=== PATIENT | female | born 1990 | race Caucasian/White ===

== ENCOUNTER 2018-07-16 16:57 | Emergency (ER) | payer OTHER ==
[~2018-07-16] VITALS: Ht 162.6 cm; Wt 76.2 kg
[~2018-07-16 16:57] MED LIST: IRON15TA3 PO
[2018-07-16 17:04] VITALS: BP 116/79
[2018-07-16] MEDS ORDERED: ONDANSETRON ODT 4 MG ONE (17:28)
[2018-07-16] MEDS ORDERED: FAMOTIDINE 20 MG TABLET ONE (17:29)
[2018-07-16] MEDS ORDERED: ONDANSETRON ODT 4 MG PO ONE (17:30)
[2018-07-16] MEDS ORDERED: FAMOTIDINE 20 MG TABLET PO ONE (17:30)
--- NOTE | 2018-07-16 17:30 | NUR ---
PT AMBULATORY TO ROOM 5 W/ C/O ALLERGIC REACTION TO CATS THAT INCLUDED BILAT EYE SWELLING. PT NOW RESTING ON [facility]. NADN. PT STATES SHE WAS GIVEN [employer]NA[employer] AND [employer] COUNSEL[employer].
== END 2018-07-16 18:37 | disposition home or self-care (01) ==
LOC: ED 18:05
DX: T78.40XA Allergy, unspecified, initial encounter (principal); R21 Rash and other nonspecific skin eruption; J98.01 Acute bronchospasm
CPT/HCPCS: 93005; 99284; J7512; Q0162

== ENCOUNTER 2018-09-02 12:59 | Emergency (ER) | payer SELFPAY ==
[~2018-09-02] VITALS: Ht 162.6 cm; Wt 77.1 kg
[2018-09-02] MEDS ORDERED: SODIUM CHLORIDE FLUSH 10ML SYR IVF ONE (14:30)
[2018-09-02 14:54] LABS: ALANINE AMINOTRANSFERASE 20 U/L (12-78); ALBUMIN 3.8 g/dL (3.4-5.0); ANION GAP 8 mmol/L (5-15); CALCIUM 8.8 mg/dL (8.5-10.1); CHLORIDE 108 mmol/L (98-107); CREATININE 0.68 mg/dL (0.55-1.02)
[2018-09-02 14:57] LABS: ALKALINE PHOSPHATASE 52 U/L (45-117); BILIRUBIN,TOTAL 0.8 mg/dL (0.2-1.0); TOTAL PROTEIN 7.7 g/dL (6.4-8.2)
--- NOTE | 2018-09-02 14:58 | NUR ---
SWING MANAGER: PT AMBULATORY TO ED ROOM 15 FROM JUAN DAVID IN NAD
--- NOTE | 2018-09-02 15:01 | NUR ---
PT AMBULATED TO BATHROOM. UA COLLECTED.
--- NOTE | 2018-09-02 15:14 | NUR ---
PT HAS CO OF BODY ACHE, SORE THROAT, VOMITING, DIARRHEA THAT STARTED YESTERDAY.
[2018-09-02 15:16] LABS: HCG UR SG 1.021 (1.003-1.030)
[2018-09-02] MEDS ORDERED: ONDANSETRON ODT 4 MG ONE (15:17)
[2018-09-02 15:20] LABS: MICROSCOPIC INDICATED
[2018-09-02 15:24] LABS: MEAN CORPUSCULAR HGB CONC 33.8 g/dL (32.4-35.8); MEAN CORPUSCULAR VOLUME 97.6 fL (80-100); MEAN PLATELET VOLUME 10.8 fL (7.4-10.4); PLATELET COUNT 166 x10^3/uL (130-400); RED BLOOD COUNT 4.05 x10^6/uL (3.82-5.3); RED CELL DISTRIBUTION WIDTH 12.8 % (9.6-15.2)
[2018-09-02 15:25] LABS: BASOPHILS # (AUTO) 0.01 x10^3/uL (0-0.1); BASOPHILS % (AUTO) 0 % (0-1); EOSINOPHILS % (AUTO) 1 % (1-7); LYMPHOCYTES % (AUTO) 14 % (22-44); MD MORPH REVIEW ONLY; MONOCYTES # (AUTO) 0.62 x10^3/uL (0.2-0.8); MONOCYTES % (AUTO) 6 % (2-9); NEUTROPHILS # (AUTO) 8.96 x10^3/uL (1.8-6.8); NEUTROPHILS % (AUTO) 79 % (42-75)
[2018-09-02 15:27] LABS: <RBC MORPHOLOGY> NORMAL
[2018-09-02 15:28] LABS: <PLATELET ESTIMATE> ADEQUATE; GIANT PLATELETS 1+
[2018-09-02] MEDS ORDERED: ONDANSETRON ODT 4 MG PO ONE (15:30)
[2018-09-02 15:47] LABS: CULTURE INDICATED? YES
[2018-09-02 16:33] VITALS: BP 102/68
--- NOTE | 2018-09-02 16:34 | NUR ---
NELL RN: Patient/Caregiver given discharge instructions and they have confirmed that they understand the instructions. Patient ambulatory with steady gait.
== END 2018-09-02 16:38 | disposition home or self-care (01) ==
LOC: ED 16:32
DX: N30.00 Acute cystitis without hematuria (principal); R19.7 Diarrhea, unspecified; R11.2 Nausea with vomiting, unspecified
CPT/HCPCS: 36415; 80053; 81001; 81025; 83690; 85025; 87086; 99283; Q0162